=== PATIENT | female | born 1965 | race Caucasian/White ===

== ENCOUNTER → 2017-10-10 | Outpatient (CLI) | payer OTHER | LOC: CAT 09:12 | DX: K80.80 Other cholelithiasis without obstruction (principal); K76.0 Fatty (change of) liver, not elsewhere classified; K57.30 Diverticulosis of large intestine without perforation or abscess without bleeding ==

== ENCOUNTER → 2018-10-08 | Outpatient (CLI) | payer OTHER | LOC: ULTRA 10:01 | DX: K80.20 Calculus of gallbladder without cholecystitis without obstruction (principal); R16.0 Hepatomegaly, not elsewhere classified; K76.0 Fatty (change of) liver, not elsewhere classified; Z88.6 Allergy status to analgesic agent; Z88.2 Allergy status to sulfonamides; Z88.8 Allergy status to other drugs, medicaments and biological substances; Z88.5 Allergy status to narcotic agent ==

== ENCOUNTER 2019-04-16 09:02 | Observation (INO) | payer OTHER ==
[~2019-04-16] VITALS: Ht 162.6 cm; Wt 117.5 kg
--- NOTE | ~2019-04-16 | O ---
[facility] [place] [address] OPERATIVE REPORT Name: MITCHELL MALDONADO Room #: 434-P [facility]#: [id number] Admission: 04/16/19 Attend Phys: Bernabe Larsen MD Discharge: Date of : 69 Report #: [id number] THIS REPORT FOR: //name// CC: Bernabe Barr MD DATE OF SERVICE: 04/16/2019 PREOPERATIVE DIAGNOSIS: Cholecystitis with cholelithiasis. POSTOPERATIVE DIAGNOSIS: Cholecystitis with cholelithiasis. PROCEDURE PERFORMED: Laparoscopic cholecystectomy with cholangiogram. SURGEON: Bernabe Larsen MD. ANESTHESIA: General anesthesia. COMPLICATIONS: None. ESTIMATED BLOOD LOSS: 5 mL. DESCRIPTION OF PROCEDURE PERFORMED: With the patient under general anesthesia, abdomen was prepped and draped in sterile fashion. IV antibiotic was administered. Timeout was performed. A 0.25% Marcaine was used to anesthetize the skin infraumbilically. Fascia was identified and isolated. Fascia was grasped with hemostat. Fascia was then opened between the hemostat. Under visualization, 0 Vicryl suture was then placed on the fascia edges for retraction where the 0 Vicryl suture lifted anteriorly, Veress needle was then placed through the peritoneum. Abdominal cavity was then insufflated with CO2. After creating pneumoperitoneum pressure of 15, 11-mm trocar was placed into the abdominal cavity under visualization. No harm to underlying tissue. Abdominal content was evaluated. The liver did have a fatty appearance. Rest of the laparoscopic evaluations was unremarkable. Two 5-mm trocars were placed in the right upper quadrant and a 5-mm trocar in the right epigastrium. Gallbladder was lifted over the liver. Gallbladder was somewhat distended. The peritoneum was then identified, inferior to the gallbladder. The common duct was noted to be more medial and posterior located. After dissecting the peritoneum and the fat in the triangle of Calot, the cystic duct was normal size. Cystic duct was isolated. Clip was placed in junction of the gallbladder to cystic duct. Opening was made in the cystic duct. Cholangiogram catheter inserted. Fluoroscopic cholangiogram was obtained. Common bile duct filled out well. No filling defects identified. The catheter was identified in the cystic duct. No harm to the common duct was visualized. Catheter was then removed. The proximal cystic duct was clipped x 2 and then divided. The cystic artery was [address] [address] OPERATIVE REPORT Name: MITCHELL MALDONADO Room #: 434-P [facility] Syeda Marrero#: [id number] Admission: 04/16/19 Attend Phys: Bernabe Larsen MD Discharge: Date of : 69 Report #: [id number] isolated. The main branch was clipped x 2 proximally, 1 distally and then divided. There was a posterior branch that was smaller. This was also clipped x 2 and approximately 1 distally and then divided. Gallbladder was free from the liver bed without difficulty. The gallbladder was placed in a specimen bag after it was removed and then removed through the infraumbilical port. Gallbladder was opened off the field. There were multiple stones identified. They were blackish in color. There was also cholesterolosis identified. Liver bed was checked, hemostasis excellent. Irrigation was aspirated out. Trocars removed under visualization. CO2 was evacuated as much as possible. Fascia defect infraumbilically was closed with [id number] 0 Vicryl x 2. Skin was irrigated, closed with 5-0 PDS. Steri-Strip, Band-Aids applied. The patient tolerated the procedure. By: 2203 2233 Bernabe Larsen MD /nt
--- NOTE | ~2019-04-16 | H ---
[facility] [place] [address] HISTORY AND PHYSICAL Name: MITCHELL MALDONADO Room #: PRE [facility] M.R.#: [id number] Admission: Attend Phys: Bernabe Larsen MD Discharge: Date of : 69 Report #: [id number] THIS REPORT FOR: //name// CC: Bernabe Barr MD PREOPERATIVE DIAGNOSIS: Cholecystitis with cholelithiasis. HISTORY OF PRESENT ILLNESS: The patient is a 53-year-old who was seen in the office in October for evaluation of abdominal pain. The patient has decided at this point to proceed with gallbladder surgery. She apparently has had abdominal pain for many years. She was diagnosed with irritable bowel as a sophomore in high school. The patient has been complaining of upper abdominal pain and a little more pain along the left side. This does wrap around to her back. The patient had an episode of pain in the first part of September. Had associated nausea. No vomiting. No bloating. No increased gas. The patient has had loose stool. The pain is crampy in nature, usually occurs in the night. No specific food intolerance. The patient did have a burrito that is associated with the September episode. The patient does have family history of gallbladder disease with father having his gallbladder removed and great grandmother had her gallbladder removed also. Mother apparently does have gallbladder disease, but has not had surgery. The patient did have an ultrasound, which showed multiple gallstones. There is layering stones in the dependent portion of the gallbladder close to the gallbladder neck. The fatty liver was identified. No gallbladder wall thickening. The patient is brought for laparoscopic cholecystectomy to treat symptomatic cholecystitis with cholelithiasis. PAST MEDICAL HISTORY: Has a history of pneumonia twice, bronchitis several times, sinus infections. The patient does not have any diabetes. The patient does have a high blood pressure. The patient does not have any liver condition kidney disease. No history of bleeding disorder. No history of blood clot. MEDICATIONS: She is on losartan once a day, Singulair, and Nexium. ALLERGIES: She is allergic to ASPIRIN, CODEINE, ALL TETRACYCLINE DRUGS, ZITHROMAX, SULFA DRUGS, CIPRO, ROBITUSSIN. PAST SURGICAL HISTORY: The patient has a precancerous spot on her face removed in 2009 and history of tonsillectomy in 1971. FAMILY HISTORY: There is gallbladder disease in the family. There is heart disease, cancer, high blood pressure, diabetes in the family. SOCIAL HISTORY: She is a school supervisor. She does not smoke, [place] [address] HISTORY AND PHYSICAL Name: MITCHELL MALDONADO Room #: PRE [facility] M.R.#: [id number] Admission: Attend Phys: Bernabe Larsne MD Discharge: Date of : 69 Report #: [id number] REVIEW OF SYSTEMS: Mild asthma and irritable bowel type symptoms. No numbness or weakness. No chest pain, shortness of breath. PHYSICAL EXAMINATION: GENERAL: She is a well-nourished female in no acute distress. HEENT: Pupils reactive to light. Extraocular muscles are intact. The patient is moderately obese. NECK: Soft and supple, no masses, no JVD. LUNGS: Clear to auscultation. HEART: Regular rate and rhythm. No murmur or gallop. ABDOMEN: Does show an upper abdominal tenderness localized to the right upper quadrant. No mass, guarding. No rigidity, no ascites, no abdominal distention. EXTREMITIES: No cyanosis, clubbing or edema. IMPRESSION AND PLAN: The patient is a 53-year-old with abdominal pain. The pain is localized down to the upper part of the abdomen, wrapping around her upper abdomen. The patient does have stones seen on ultrasound, which are close to the gallbladder neck. The patient is recommended to have the gallbladder removed, laparoscopic cholecystectomy with intraoperative cholangiogram was discussed. The risk of bleeding, infection, common bile duct injury and bile leak was discussed. The patient now wishes to proceed with surgery. By: 2206 2255 Bernabe Larsen MD /nt
[~2019-04-16 09:02] MED LIST: BENTYL 10 MG CA10 M1 PO; LOSARTAN POTAS100 MG PO; MONTELUKAST SOD10 MG PO; NEXIUM 24HR20 M2 PO; PROAIR DIGIHAL90 MCG INH; SYMBICORT160 MCG/4. INH
[2019-04-16 09:49] VITALS: BP 163/78
[2019-04-16 15:30] VITALS: BP 123/61
[2019-04-16 16:00] VITALS: BP 120/63
[2019-04-16 16:30] VITALS: BP 131/74
--- NOTE | 2019-04-16 18:41 | NUR ---
PT RECEIVED FROM REC RM AT 1450 ALERT AND IN NO ACUTE DISTRESS. SURGICAL LAP SITE BANDAIDS DRY. UP TO THE BR TO VOID AND GAIT STEADY. TAKING CLEAR LIQUIDS W/O NAUSEA. NO C/O PAIN BUT SORENESS. MOTHER STAYING THE NOC.
[2019-04-16 19:05] VITALS: BP 140/75
--- NOTE | 2019-04-16 23:21 | NUR ---
ASSUMED PT CARE AT 1900. LAP SITES DRY AND COVERED WITH BANDAIDS. PT DENIES PAIN, JUST A SLIGHT SORENESS. HAD SOME JELLO, TOLERATED IT WELL. ANTIBIOTICS HUNG. READY TO GO HOME. SLEEPING NOW WITH MOTHER IN ROOM.
[2019-04-17 04:15] VITALS: BP 131/68
[2019-04-17 07:20] VITALS: BP 132/70
[2019-04-17] MEDS ORDERED: TYLENOL EXTRA500 MG PO (14:17)
[2019-04-17 14:23] VITALS: BP 132/70
--- NOTE | 2019-04-17 15:12 | NUR ---
Patient discharged and left with transportation visa a wheel chair at 3:12pm. AO, calm and cooperative; education given, voiced understanding it. Denied pain, no n/v. Wounds checked with the patient, no reddness, no swelling, no drainage.
--- NOTE | 2019-04-20 12:52 | EKG ---
[address] [address] ELECTROCARDIOGRAM REPORT Name: MITCHELL MALDONADO Room #: 434-P [facility]#: [id number] Admission: 04/16/19 Attend Phys: Bernabe Larsen MD Discharge: 04/17/19 Date of : 69 Report #: [id number] THIS REPORT FOR: //name// [facility] Test Date: 2019-04-16 Test Time: 09:52:04 Pat Name: MITCHELL MALDONADO Department: Room: [facility] Gender: F Powder Cutting Operator: RAQUEL : 1965 Requested By: Bernabe Larsen Order Number: [id number] : Ashok Barragan Measurements Intervals [place] Rate: 79 P: 58 MA: 191 QRS: 10 QRSD: 89 T: 36 QT: 390 QTc: 448 Interpretive Statements Sinus rhythm Low voltage, precordial leads No previous ECG available for comparison Electronically Signed On 04-20-2019 12:52:08 VICE PRESIDENT OF MANUFACTURING by Ashok Barragan [email or web address] <ELECTRONICALLY SIGNED> By: Ashok Barragan MD 04/20/19 1252 D: 12951 1 Ashok Barragan MD /ASHLI
--- NOTE | 2019-04-20 19:06 | PATH ---
[facility] [address] [place] [address] PATHOLOGY RPT PROCEDURE Name: MITCHELL MALDONADO Room #: 434-P [facility] M.RAnusha#: [id number] Admission: 04/16/19 Date of : 69 Discharge: 04/17/19 Report #: [id number] Path Case #: [id number] [facility] Accession Number: [id number] . 01 Material submitted: . gallbladder - GALLBLADDER . 01 Clinical history: . CHOLECYSTITIS . 02 Diagnosis: Gallbladder, cholecystectomy: - Mild chronic cholecystitis. - Cholelithiasis. - Focal cholesterolosis. (IUV:web master; 04/20/2019) MBR 04/20/2019 1355 Local . 02 Electronically signed: . Malia Elder MD, Pathologist NPI- [id number] . 01 Gross description: . Received in formalin labeled "Georgi, Lynise, gallbladder," is a previously opened gallbladder measuring 5.7 x 4.0 x 1.6 cm in greatest dimensions. The serosal surface is wrinkled and yellow-green in appearance, largely covered in yellow adipose tissue. The mucosal surface is granular and yellow-green in appearance, measuring 0.1 cm in thickness with a gallbladder wall thickness of up to 0.3 cm including attached adipose tissue. Multiple patches of faint pinpoint yellow highlights are noted on the mucosal surface. No distinct polyps or nodules are identified grossly. Calculi are present within the specimen container that are friable, granular and black in appearance, ranging from 0.2 to 0.6 cm in maximum dimension. Stripping And Booking Machine Operator sections of the infundibulum, body and fundus are submitted in cassette A1. (DAC; 04/17/2019) XDC/XIL 04/17/2019 0923 Local . 02 Pathologist provided ICD-10: K80.10, K82.4 . 02 CPT . 333811 Specimen Comment: A courtesy copy of this report has been sent to [phone], [phone] Specimen Comment: [phone] Specimen Comment: [place] [address] PATHOLOGY RPT PROCEDURE Name: MITCHELL MALDONADO Room #: 434-P [facility] M.RAnusha#: [id number] Admission: 04/16/19 Date of : 69 Discharge: 04/17/19 Report #: [id number] Path Case #: [id number] Performed at: 01 [facility] [address] [place] [address] [address], [place], [place] [id number] MD Gene Barnett MD Phone: [phone] Performed at: [address] [id number] MD Malia Elder MD Phone: [phone]
== END 2019-04-17 15:15 | disposition home or self-care (01) ==
LOC: OR 09:02 → TBA 09:05 → OR 10:56 → TBACV 14:13 → 4S 14:50 → OR 15:49 → ENTRNSPT 04-17 15:05 → 4S 04-17 15:15 → EDTRNSPTSTS 04-17 15:18
PROVIDERS: ADMIT Surgery
DX: K80.10 Calculus of gallbladder with chronic cholecystitis without obstruction (principal); Z87.01 Personal history of pneumonia (recurrent); Z79.899 Other long term (current) drug therapy
CPT/HCPCS: 50010; 50101; 50411; 50555; 50558; 51489; 53307; 53310; 53312; 55245; 55317; 56462; 56525; 56526; 62110; 62900; 70005

== ENCOUNTER 2021-03-06 09:47 | Emergency (ER) | payer OTHER ==
[~2021-03-06] VITALS: Ht 162.6 cm; Wt 131.5 kg
[~2021-03-06 09:47] MED LIST changes: +TYLENOL EXTRA500 MG PO
[2021-03-06 10:43] LABS: HEMATOCRIT 37.5 % (37.0-47.0); HEMOGLOBIN 12.1 gm/dL (12.0-15.0); MCH 26.6 pg (26.0-34.0); MCHC 32.4 g/dL (28.0-37.0); MCV 82.3 fL (80.0-100.0); RBC 4.56 mil/uL (4.20-5.00); RDW 15.2 % (10.5-14.5); WBC 15.9 thou/uL (4.0-11.0)
[2021-03-06 10:51] LABS: CALCIUM 8.7 mg/dL (8.5-10.1); CREATININE 0.7 mg/dL (0.6-1.0)
[2021-03-06 11:09] LABS: MYELOCYTES 1 %
[2021-03-06 11:10] LABS: ANISOCYTOSIS 1+; PLATELET COUNT 286 thou/uL (150-400)
--- NOTE | 2021-03-06 11:35 | EKG ---
[place] [address] [facility] [place] [address] ELECTROCARDIOGRAM REPORT Name: MITCHELL MALDONADO Room #: REG [facility]#: [id number] Admission: 03/06/21 Attend Phys: Discharge: Date of : 69 Report #: [id number] [facility] ED Test Date: 2021-03-06 Test Time: 09:58:32 Pat Name: MITCHELL MALDONADO Department: Room: Gender: F Quality Compliance Coordinator: : 1965 Requested By: Wei Galvan Order Number: [id number] MD: Karl Smith Measurements Intervals [place] Rate: 87 P: 52 IN: 185 QRS: 10 QRSD: 93 T: 28 QT: 360 QTc: 433 Interpretive Statements Sinus rhythm Low voltage, precordial leads Compared to ECG 04/16/2019 09:52:04 No significant changes Electronically Signed On 03-06-2021 11:34:56 BOOM PUMP OPERATOR by Karl Smith [email or web address] <ELECTRONICALLY SIGNED> By: Karl Smith MD, [facility] 03/06/21 1134 [phone] Karl Smith MD, FAC /EPI
[2021-03-06 11:45] LABS: URINE BILIRUBIN NEGATIVE (Negative); URINE BLOOD NEGATIVE (Negative); URINE CLARITY CLEAR; URINE COLOR YELLOW; URINE GLUCOSE-RANDOM* NEGATIVE (Negative); URINE KETONES NEGATIVE (Negative); URINE LEUKOCYTES-REFLEX NEGATIVE (Negative); URINE NITRITE-REFLEX NEGATIVE (Negative); URINE PROTEIN (DIPSTICK) NEGATIVE (Negative); URINE SPECIFIC GRAVITY >= 1.030 (1.005-1.035); URINE UROBILINOGEN 0.2 E.U./dl (0.2-1.0)
[2021-03-06 11:55] VITALS: BP 156/75
== END 2021-03-06 12:00 | disposition home or self-care (01) ==
LOC: ER 09:47
PROVIDERS: Student in an Organized Health Care Education/Training Program
DX: R07.89 Other chest pain (principal); K21.9 Gastro-esophageal reflux disease without esophagitis; I10 Essential (primary) hypertension; Z90.89 Acquired absence of other organs; J45.909 Unspecified asthma, uncomplicated; Z79.899 Other long term (current) drug therapy; Z88.6 Allergy status to analgesic agent; Z88.2 Allergy status to sulfonamides; Z88.1 Allergy status to other antibiotic agents